=== PATIENT | female | born 1965 | race Caucasian/White ===

== ENCOUNTER → 2017-03-14 | Outpatient (REF) | payer MEDICAID ==
[~2017-03-14] MED LIST: ACET-2264 PO; ACET325T38 PO; ALBU8.5H4 IH; AMOX500C5 PO; ASP81CT PO; ASPI-586 PO; AZIT250T81 PO; BENZ200C3 PO; CLIN-78 PO; FRSM40T PO; FURO-125 PO; GFN600TCR PO; HYDR-3702 PO; LSNP10T PO; METH4TAB27 PO; NF-DICLOTA PO; NYST30CR TP; ONDA4TAB8 PO; POTA10CA43 PO; RANI75TA21 PO
[2017-03-14 11:13] LABS: ANION GAP 16.3 MEQ/L (3-15)
== END ==
LOC: LAB 10:21
PROVIDERS: ATTEND Family Medicine
DX: I50.32 Chronic diastolic (congestive) heart failure (principal)
CPT/HCPCS: 80048